=== PATIENT | male | born 1965 | race Caucasian/White ===

== ENCOUNTER → 2018-04-27 | Outpatient (CLI) | payer OTHER ==
[~2018-04-27] MED LIST: ASPIRIN81 M2 PO; ATORVASTATIN CA40 MG PO; GLUCOPHAGE500 MG PO; GLUCOTROL5 MG PO; IBUPROFEN 800800 M1 PO; MEDROLDOSEPACK PO; NOHOMEMEDICATIONS; NORCO 5-325 TA1 EACH PO
== END ==
LOC: M.LAB 08:00 → M.CT 09:30
PROVIDERS: Internal Medicine Gastroenterology
DX: K57.30 Diverticulosis of large intestine without perforation or abscess without bleeding (principal); K76.0 Fatty (change of) liver, not elsewhere classified; N40.0 Benign prostatic hyperplasia without lower urinary tract symptoms; M47.815 Spondylosis without myelopathy or radiculopathy, thoracolumbar region; E11.9 Type 2 diabetes mellitus without complications; E78.5 Hyperlipidemia, unspecified; Z86.39 Personal history of other endocrine, nutritional and metabolic disease

== ENCOUNTER 2020-04-08 17:45 | Emergency (ER) | payer OTHER ==
[~2020-04-08] VITALS: Ht 177.8 cm; Wt 97.1 kg
[2020-04-08] MEDS ORDERED: ELIQUIS5 MG PO (17:56)
[2020-04-08] MEDS ORDERED: FLEXERIL PO (17:57)
[2020-04-08 18:47] LABS: HEMATOCRIT 32.4 % (42.0-52.0); HEMOGLOBIN 10.3 gm/dL (14.0-18.0); MCH 23.8 pg (26.0-34.0); MCHC 31.9 g/dL (28.0-37.0); MCV 74.6 fL (80.0-100.0); MPV 7.4 fl. (7.2-11.1); NUCLEATED RBCS 0 /100WBC; PLATELET COUNT* 267 thou/uL (150-400); RBC 4.34 mil/uL (4.50-6.00); RDW-CV 18.8 % (10.5-14.5); WBC 9.3 thou/uL (4.0-11.0)
[2020-04-08 18:53] LABS: CALCIUM 9.7 mg/dL (8.5-10.1); CREATININE 1.1 mg/dL (0.6-1.3); POTASSIUM 3.8 mmol/L (3.5-5.1)
[2020-04-08 18:56] LABS: APTT 31.9 Seconds (25.0-31.3); INR 1.3; PROTIME 13.9 Seconds (9.20-11.50)
[2020-04-08 18:58] LABS: ALBUMIN 2.3 g/dL (3.4-5.0); TOTAL BILIRUBIN 0.6 mg/dL (<0.1-1.0); TOTAL PROTEIN 6.7 g/dL (6.4-8.2)
[2020-04-08] MEDS ORDERED: KEFLEX500 M1 PO (19:02)
[2020-04-08 19:11] LABS: URINE BILIRUBIN NEGATIVE (Negative); URINE BLOOD 2+ (Negative); URINE CLARITY CLEAR; URINE COLOR YELLOW; URINE GLUCOSE-RANDOM NEGATIVE (Negative); URINE KETONES NEGATIVE (Negative); URINE NITRITE-REFLEX NEGATIVE (Negative); URINE PROTEIN NEGATIVE (Negative); URINE UROBILINOGEN 0.2 E.U./dl (0.2-1.0)
[2020-04-08 19:14] LABS: URINE LEUKOCYTES-REFLEX 2+ (Negative)
[2020-04-08 19:17] LABS: ABSOLUTE LYMPHOCYTES 0.2 thou/uL (0.8-5.3); ABSOLUTE MONOCYTES 0.2 thou/uL (0.0-1.2); ABSOLUTE NEUTROPHILS 8.9 thou/uL (1.6-8.1); ANISOCYTOSIS 1+; OVALOCYTES Occasional
[2020-04-08 19:18] LABS: HYPOCHROMASIA Occasional; MICROCYTES 1+; PLATELET ESTIMATE ADEQUATE
[2020-04-08 19:21] LABS: HYALINE CASTS 4-10 Moderate /LPF (None Seen)
[2020-04-08 19:22] LABS: CRYSTALS None Seen /LPF (None Seen); MUCUS None Seen strn/LPF (None Seen); SQUAMOUS NONE SEEN /LPF (0-3); URINE RBC 3-10 Few /HPF (0-2); URINE WBC-REFLEX >25 Many /HPF (0-5); WBC CLUMPS Few (None Seen)
[2020-04-08 19:30] LABS: INFLUENZA A ANTIGEN Negative (Negative); INFLUENZA B ANTIGEN Negative (Negative)
[2020-04-08 20:42] VITALS: BP 143/87
== END 2020-04-08 20:44 | disposition home or self-care (01) ==
LOC: M.ERS 17:45
PROVIDERS: Emergency Medicine Emergency Medical Services
DX: R50.9 Fever, unspecified (principal); N39.0 Urinary tract infection, site not specified; Z20.822 Contact with and (suspected) exposure to COVID-19; E11.9 Type 2 diabetes mellitus without complications; E78.5 Hyperlipidemia, unspecified; I10 Essential (primary) hypertension; Z85.048 Personal history of other malignant neoplasm of rectum, rectosigmoid junction, and anus; Z88.0 Allergy status to penicillin; Z90.49 Acquired absence of other specified parts of digestive tract

== ENCOUNTER 2020-04-18 12:16 | Inpatient (IN) | payer OTHER ==
[~2020-04-18] VITALS: Ht 180.3 cm; Wt 100.7 kg
[~2020-04-18 12:16] MED LIST changes: +ELIQUIS5 MG PO; +FLEXERIL PO; +KEFLEX500 M1 PO
[2020-04-18 12:28] VITALS: BP 123/78
[2020-04-18 13:13] LABS: INFLUENZA A ANTIGEN Negative (Negative); INFLUENZA B ANTIGEN Negative (Negative)
[2020-04-18 14:02] LABS: HEMATOCRIT 28.5 % (42.0-52.0); HEMOGLOBIN 8.9 gm/dL (14.0-18.0); MCH 22.8 pg (26.0-34.0); MCHC 31.2 g/dL (28.0-37.0); MCV 73.2 fL (80.0-100.0); MPV 8.2 fl. (7.2-11.1); NUCLEATED RBCS 0 /100WBC; PLATELET COUNT* 293 thou/uL (150-400); RDW-CV 19.1 % (10.5-14.5); WBC 13.4 thou/uL (4.0-11.0)
[2020-04-18 14:16] LABS: CALCIUM 10.5 mg/dL (8.5-10.1); POTASSIUM 3.7 mmol/L (3.5-5.1)
[2020-04-18 14:21] LABS: ALBUMIN 2.1 g/dL (3.4-5.0); TOTAL BILIRUBIN 1.2 mg/dL (<0.1-1.0)
[2020-04-18 14:28] LABS: ABSOLUTE LYMPHOCYTES 0.5 thou/uL (0.8-5.3); ABSOLUTE MONOCYTES 0.8 thou/uL (0.0-1.2); ABSOLUTE NEUTROPHILS 12.1 thou/uL (1.6-8.1)
[2020-04-18 14:29] LABS: ANISOCYTOSIS 1+; PLATELET ESTIMATE ADEQUATE
[2020-04-18 14:30] LABS: HYPOCHROMASIA 2+; MICROCYTES 1+
[2020-04-18 14:54] LABS: URINE BILIRUBIN NEGATIVE (Negative); URINE BLOOD NEGATIVE (Negative); URINE CLARITY CLEAR; URINE COLOR YELLOW; URINE GLUCOSE-RANDOM NEGATIVE (Negative); URINE KETONES NEGATIVE (Negative); URINE LEUKOCYTES-REFLEX 1+ (Negative); URINE NITRITE-REFLEX NEGATIVE (Negative); URINE PROTEIN NEGATIVE (Negative); URINE UROBILINOGEN 0.2 E.U./dl (0.2-1.0)
[2020-04-18 15:11] LABS: CASTS None Seen /LPF (None Seen); CRYSTALS None Seen /LPF (None Seen); HYALINE CASTS >10 Many /LPF (None Seen); MUCUS 4-6 Moderate strn/LPF (None Seen); SQUAMOUS 0-3 Few /LPF (0-3)
[2020-04-18 15:12] LABS: BACTERIA-REFLEX >30 Many /HPF (None Seen); URINE RBC 0-2 Rare /HPF (0-2); URINE WBC-REFLEX 6-15 Few /HPF (0-5); YEAST-REFLEX Present (None Seen)
[2020-04-18 15:35] LABS: MAGNESIUM 1.9 mg/dL (1.8-2.4); PHOSPHORUS* 3.2 mg/dL (2.5-4.9)
[2020-04-18 15:56] VITALS: BP 121/65
[2020-04-18 16:56] VITALS: BP 168/84
[2020-04-18 19:45] VITALS: BP 166/84
[2020-04-18 23:30] VITALS: BP 157/86
[2020-04-19 07:10] VITALS: BP 186/98
[2020-04-19 11:44] VITALS: BP 158/87
[2020-04-19 16:00] VITALS: BP 154/85
[2020-04-19 20:00] VITALS: BP 143/78
[2020-04-20 04:00] VITALS: BP 139/75
[2020-04-20 10:18] VITALS: BP 146/82
[2020-04-20 12:56] LABS: HEMATOCRIT 30.4 % (42.0-52.0); HEMOGLOBIN 9.4 gm/dL (14.0-18.0); MCHC 30.9 g/dL (28.0-37.0); MCV 74.5 fL (80.0-100.0); RBC 4.08 mil/uL (4.50-6.00); RDW-CV 19.3 % (10.5-14.5); WBC 11.8 thou/uL (4.0-11.0)
[2020-04-20 13:10] LABS: ALBUMIN 1.7 g/dL (3.4-5.0); CALCIUM 9.5 mg/dL (8.5-10.1); MAGNESIUM 2.2 mg/dL (1.8-2.4); PHOSPHORUS* 1.8 mg/dL (2.5-4.9); POTASSIUM 3.6 mmol/L (3.5-5.1); TOTAL BILIRUBIN 0.8 mg/dL (<0.1-1.0); TOTAL PROTEIN 6.8 g/dL (6.4-8.2)
--- NOTE | 2020-04-20 14:57 | CON ---
[address] [address] CONSULTATION Name: CORRINARIKKI C Room: [address] IN M.R.#: [id number] Admission: 04/18/20 Attend Phys: Noe Uribe Discharge: Date of : 63 Report #: [id number] THIS REPORT FOR: cc: Hugo Yee Bruce R. DO ~ Celina Coughlin MD DATE OF SERVICE: 04/19/2020 REQUESTING PHYSICIAN: Naren Lockhart DO. REASON FOR CONSULT: Abdominal distention and pain. HISTORY OF PRESENT ILLNESS: This is a 54-year-old male with history of metastatic rectal CA, status post LAR and colostomy. The patient also has a urostomy and reports that he was placed on pain medication recently. The patient presented with abdominal distention and pain. He also reports some nausea. He has some gas in the colostomy bag and some stool. PAST MEDICAL HISTORY: Significant for what mentioned above. He also has history of gallbladder disease, status post cholecystectomy, and prostatectomy. ALLERGIES: SIGNIFICANT TO PENICILLIN. MEDICATIONS: Please refer to MAR. SOCIAL HISTORY: The patient lives at home with his . He has a metastatic rectal CA. FAMILY HISTORY: Noncontributory. PHYSICAL EXAMINATION: VITAL SIGNS: Reveals blood pressure of 158/87, respirations 16, pulse 75, temperature 98.9. LUNGS: Clear. CARDIOVASCULAR: Regular. ABDOMEN: Large, distended. Bowel sounds are positive, but minimal. The urostomy and colostomy bag in place. NEUROLOGIC: The patient is alert and oriented x 3. LABORATORY DATA: Reveal sodium of 136, potassium 3.7, BUN is 17, creatinine 1.0, glucose 155, AST is 100, ALT 41, alkaline phosphatase 236, total bilirubin 1.2. WBC is 13.4 with hemoglobin of 8.9, down from 10.3 and platelets of 293. The patient also has evidence of UTI for which [place] [address] CONSULTATION Name: RIKKI HOUSER Room: [address] IN [facility].#: [id number] Admission: 04/18/20 Attend Phys: Noe Uribe Discharge: Date of : 63 Report #: [id number] IMAGING: CT of abdomen and pelvis were obtained on admission. The patient has evidence of extensive metastatic disease throughout the liver. There are dilated small bowels with fluid overlying the abdomen. There appeared to be a transition point in the right lower quadrant with stenosis at the anastomotic site. KUB consistent with partial small-bowel obstruction. ASSESSMENT AND PLAN: The patient with history of metastatic rectal cancer, who has a colostomy and urostomy in place. He has passed stool into the colostomy bag and some air. He also has bowel sounds. I will put him on a motility agents and repeat KUB in the morning. <ELECTRONICALLY SIGNED> By: Celina Coughlin MD 04/20/20 [id number] Coughlin MD /nt
[2020-04-20 16:33] VITALS: BP 151/87
[2020-04-20 19:45] VITALS: BP 149/80
[2020-04-21 08:00] VITALS: BP 155/82
[2020-04-21 16:24] VITALS: BP 139/75
[2020-04-21 21:00] VITALS: BP 160/86
[2020-04-22 04:33] LABS: HEMATOCRIT 27.5 % (42.0-52.0); HEMOGLOBIN 8.7 gm/dL (14.0-18.0); MCH 23.2 pg (26.0-34.0); MCHC 31.5 g/dL (28.0-37.0); MCV 73.6 fL (80.0-100.0); RBC 3.74 mil/uL (4.50-6.00); RDW-CV 19.4 % (10.5-14.5); WBC 11.7 thou/uL (4.0-11.0)
[2020-04-22 04:45] LABS: CALCIUM 10.4 mg/dL (8.5-10.1); CREATININE 0.8 mg/dL (0.6-1.3); MAGNESIUM 2.2 mg/dL (1.8-2.4); POTASSIUM 3.6 mmol/L (3.5-5.1)
[2020-04-22 07:25] VITALS: BP 155/81
[2020-04-22 16:12] VITALS: BP 145/78
[2020-04-22 20:30] VITALS: BP 144/76
[2020-04-23 07:50] VITALS: BP 150/85
[2020-04-23] MEDS ORDERED: ERY-TAB250 MG PO (13:31)
[2020-04-23] MEDS ORDERED: LEVOFLOXACIN500 MG PO (13:33)
[2020-04-23] MEDS ORDERED: DULCOLAX5 MG PO (13:35)
[2020-04-23] MEDS ORDERED: ONDANSETRON HCL4 M2 PO (13:36)
[2020-04-23] MEDS ORDERED: PEPCID20 MG PO (13:37)
[2020-04-23] MEDS ORDERED: REGLAN 10 MG TA10 MG PO (13:38)
[2020-04-23] MEDS ORDERED: FOLIC ACID1 MG PO (13:39)
[2020-04-23] MEDS ORDERED: MELATONIN5 M1 PO (13:40)
[2020-04-23] MEDS ORDERED: ACETAMINOPHEN325 M1 PO (13:41)
[2020-04-23 15:48] VITALS: BP 150/85
[2020-04-23 18:19] VITALS: BP 150/85
== END 2020-04-23 17:45 | disposition home or self-care (01) | DRG 871 ==
LOC: M.ERS 12:16 → M.TBA-ER 14:38 → M.ORTHSURG 14:38
PROVIDERS: Family Medicine; Internal Medicine Hematology & Oncology; Physician Assistant; Surgery; ADMIT Internal Medicine; ATTEND Internal Medicine
DX: A41.9 Sepsis, unspecified organism (principal); E43 Unspecified severe protein-calorie malnutrition; N12 Tubulo-interstitial nephritis, not specified as acute or chronic; K56.600 Partial intestinal obstruction, unspecified as to cause; C78.7 Secondary malignant neoplasm of liver and intrahepatic bile duct; C78.00 Secondary malignant neoplasm of unspecified lung; C20 Malignant neoplasm of rectum; K92.89 Other specified diseases of the digestive system; I10 Essential (primary) hypertension; E11.9 Type 2 diabetes mellitus without complications; E78.5 Hyperlipidemia, unspecified; E83.39 Other disorders of phosphorus metabolism; D50.9 Iron deficiency anemia, unspecified; E53.8 Deficiency of other specified B group vitamins; Z20.822 Contact with and (suspected) exposure to COVID-19; Z85.048 Personal history of other malignant neoplasm of rectum, rectosigmoid junction, and anus; Z93.3 Colostomy status; Z90.49 Acquired absence of other specified parts of digestive tract; Z79.01 Long term (current) use of anticoagulants; Z79.899 Other long term (current) drug therapy; Z88.0 Allergy status to penicillin; Z68.31 Body mass index [BMI] 31.0-31.9, adult